=== PATIENT | female | born 1975 | race Caucasian/White ===

== ENCOUNTER → 2018-02-24 | Outpatient (CLI) | payer SELFPAY ==
[2018-02-24 08:41] LABS: HEMATOCRIT 38.1 % (36.0-47.0); HEMOGLOBIN 13.2 g/dL (12.0-16.0)
== END ==
LOC: LAB 08:16
PROVIDERS: ATTEND Psychiatry & Neurology Neurology
DX: Z02.0 Encounter for examination for admission to educational institution (principal)
CPT/HCPCS: 36415; 85014; 85018; 86317; 86706; 86787